=== PATIENT | male | born 1950 | race Caucasian/White ===

== ENCOUNTER 2017-02-04 08:46 | Day surgery (SDC) | payer BC ==
[~2017-02-04] VITALS: Ht 175.3 cm; Wt 83.9 kg
--- NOTE | ~2017-02-04 | EGD ---
EGD REPORT [facility] [address] [address] NAME: TRACE MCLAIN : [birth year] [place]US [place] [facility] [place] PAT#: [id number] AGE: 66 ADM/REG DATE : 02/04/17 MR#: [id number] REPORT SERV DATE: 02/04/17 DICTATED BY: TANNER WILLETT DATE: 02/04/17 REPORT STATUS : Draft TRANSCRIBED BY: [facility] DATE: 02/04/17 Endoscopy Center Patient Name: Trace Mclain Date of : 1950 Attending MD: TANNER WILLETT MD Procedure Date No Time: 02/04/2017 Procedure: Colonoscopy Indications: Screening for colorectal malignant neoplasm Referring MD: DREW MCCARTHY Medicines: as per anesthesia Complications: No immediate complications. Procedure: Pre-Anesthesia Assessment: - ASA Grade Assessment: III - A patient with severe systemic disease. After I obtained informed consent, the scope was passed under direct vision. Throughout the procedure, the patient's blood pressure, pulse, and oxygen saturations were monitored continuously. The PCF [id number] was introduced through the anus and advanced to the cecum, identified by appendiceal orifice and ileocecal valve. The colonoscopy was performed without difficulty. The patient tolerated the procedure. The quality of the bowel preparation was adequate to identify polyps. Findings: The perianal and digital rectal examinations were normal. A few small and large-mouthed diverticula were found in the descending colon and in the transverse colon. Internal hemorrhoids were found during endoscopy and were mild. Impression: - Diverticulosis in the descending colon and in the transverse colon. - Internal hemorrhoids. Recommendation: - Repeat colonoscopy in 10 years for surveillance. Procedure Code(s): --- Professional --- 01752, Colonoscopy, flexible, proximal to splenic flexure; diagnostic, with or without collection of specimen(s) by brushing or washing, with or without colon decompression (separate procedure) Diagnosis Code(s): --- Professional --- K64.8, Other hemorrhoids K57.30, Diverticulosis of large intestine without EGD REPORT [facility] [address] [facility] [place]. [address] NAME: TRACE MCLAIN : [birth year] STATUS : [place] [facility] [place] PAT#: [id number] AGE: 66 ADM/REG DATE : 02/04/17 MR#: [id number] REPORT SERV DATE: 02/04/17 DICTATED BY: TANNER WILLETT. DATE: 02/04/17 REPORT STATUS : Draft TRANSCRIBED BY: [employer] DATE: 02/04/17 perforation or abscess without bleeding Z12.11, Encounter for screening for malignant neoplasm of colon CPT copyright 2013 [employer]. All rights reserved. The codes documented in this report are preliminary and upon component lab tech review may be revised to meet current compliance requirements. TANNER WILLETT MD 02/04/2017 10:24 AM This report has been signed electronically. Number of Addenda: 0 Note Initiated On: 02/04/2017 9:56 AM Scope Withdrawal Time 0 hours 7 minutes 37 seconds [address] [facility] [place] [address]
[~2017-02-04 08:46] MED LIST: FORTAMET500 MG PO; INDAPAMIDE1.25 MG PO; LOP100 PO; LOTREL1 CA4 PO; MULTIVITAMI1 PO
== END 2017-02-04 23:59 | disposition home or self-care (01) ==
LOC: DMU 08:46
PROVIDERS: Internal Medicine Gastroenterology
PROC: 0DJD8ZZ Inspection of Lower Intestinal Tract, Via Natural or Artificial Opening Endoscopic (ICD-10-PCS; principal; 2017-02-04 09:30)
DX: Z12.11 Encounter for screening for malignant neoplasm of colon (principal); K57.30 Diverticulosis of large intestine without perforation or abscess without bleeding; K64.8 Other hemorrhoids; I10 Essential (primary) hypertension; G47.33 Obstructive sleep apnea (adult) (pediatric); E11.9 Type 2 diabetes mellitus without complications; Z99.81 Dependence on supplemental oxygen; Z98.890 Other specified postprocedural states; Z79.899 Other long term (current) drug therapy
CPT/HCPCS: 82962